=== PATIENT | male | born 1930 | race Caucasian/White ===

== ENCOUNTER → 2018-01-19 | Outpatient (CLI) | payer MEDICARE ==
--- NOTE | 2018-01-20 09:51 | CT ---
EXAMINATION TYPE: CT chest wo con DATE OF EXAM: 01/19/2018 COMPARISON: None HISTORY: Shortness of breath. CT DLP: 736.5 mGycm, Automated exposure control for dose reduction was used. CONTRAST: None TECHNIQUE: Axial images were obtained at 1 mm thick sections at 10 mm intervals. This will limit po rtions of the examination which may not be visualized within the [id number]. Images were obtained in the prone and supine views. FINDINGS: Portion of the thyroid visualized is normal. No suspicious lung nodules are identified. So me minimal persistent pneumonitis change is adjacent to the major fissure near the diaphragm within t he right middle lobe. This appears similar between prone and supine views. Short-term follow-up CT ch est in 6 months is recommended. There is a minimal pleural thickening within the lingula near the lef t lung base. Series 4 image 26 measuring 0.3 cm in depth. No enlarged mediastinal or hilar adenopathy is evident. The ascending aorta diameter at the level o f the main pulmonary artery is 4.6 cm. The descending thoracic aorta and aortic arch appears to tape r normally. The main pulmonary artery diameter at the bifurcation is 2.8 cm. Moderate coronary arter y calcification is present. Limited CT sections are obtained through the upper abdomen. Abdomen is essentially unremarkable. IMPRESSIONS: 1. Mild pneumonitis change within the right middle lobe. Short-term follow-up in 6 months is recommen ded. 2. Some minimal pleural thickening within the lingula. 3. Ascending thoracic aortic aneurysm.
== END | disposition home or self-care (01) ==
LOC: RADCTMAIN 16:12
PROVIDERS: ATTEND Family Medicine
DX: I71.2 Thoracic aortic aneurysm, without rupture (principal); J18.9 Pneumonia, unspecified organism
CPT/HCPCS: 71250